=== PATIENT | female | born 1965 | race Caucasian/White ===

== ENCOUNTER 2021-04-17 10:45 | Inpatient (IN) ==
[~2021-04-17 10:45] MED LIST: Buffered Lidocaine 1% SYRIN 1 ml INTRADERM ONE; Lactated Ringers 1000 ml BAG 1,000 ML IV SCH
[2021-04-17] MEDS ORDERED: Propofol 10 MG/ML 20 ML BTL ONE ×4 (11:02→13:51)
[2021-04-17] MEDS ORDERED: Lidocaine 2% PF 5 ML VIAL ONE (11:03)
[2021-04-17] MEDS ORDERED: Buffered Lidocaine 1% SYRIN 1 ml INTRADERM ONE (11:13)
[2021-04-17] MEDS ORDERED: ceFAZolin 2 GM PREMIX 2 GM/50 ML BAG ONE (11:13)
[2021-04-17] MEDS ORDERED: Bupivacaine 0.5% SDV PF 30ML VIAL ONE (12:45)
[2021-04-17] MEDS ORDERED: Dexamethasone IV 4 MG/ML VIAL 1 ml VIAL ONE ×2 (12:45→14:05)
[2021-04-17] MEDS ORDERED: Lidocaine 1% MPF 5 ML VIAL ONE (12:52)
[2021-04-17] MEDS ORDERED: Rocuronium 50 mg VIAL 10 mg/ml 5 ml VIAL (50 mg) ONE (13:23)
[2021-04-17] MEDS ORDERED: fentaNYL 250 mcg/5 ml 50 MCG/ML 5 ml VIAL (250 MCG) ONE (13:24)
[2021-04-17] MEDS ORDERED: HYDROmorphone 0.5 MG/0.5 ML SYRINGE ONE ×5 (13:24→18:00)
[2021-04-17] MEDS ORDERED: Ondansetron 4 mg VIAL 2 MG/ML 2 ml VIAL ONE ×2 (14:05→17:08)
[2021-04-17] MEDS ORDERED: Morphine 2 MG/ML SYRINGE IV PRN (15:06)
[2021-04-17] MEDS ORDERED: Lactulose 30 ml UDC PO PRN (15:06)
[2021-04-17] MEDS ORDERED: Magnesium Hydroxide LIQ 30 ML UDC PO PRN (15:06)
[2021-04-17] MEDS ORDERED: diPHENhydraMINE 25 mg TAB PO PRN (15:06)
[2021-04-17] MEDS ORDERED: diPHENhydraMINE IV 50 MG/ML 1 ml VIAL (BENADRYL) IV PRN (15:06)
[2021-04-17] MEDS ORDERED: Prochlorperazine 5 mg/ml 2 ml VIAL (10 mg) IV PRN (15:12)
[2021-04-17] MEDS ORDERED: Acetaminophen IV 1 GM/100ML 100 ML IV ONE (17:01)
[2021-04-17] MEDS ORDERED: fentaNYL 100 mcg/2 ml 50 MCG/ML VIAL ONE ×2 (17:01→17:27)
[2021-04-17] MEDS ORDERED: DiMENhydriNATE IV 50 mg/ml 1 ml VIAL IV PUSH PRN (17:08)
[2021-04-17] MEDS ORDERED: Naloxone 0.4 mg VIAL 0.4 mg/ml 1 ml VIAL IV PRN (17:08)
[2021-04-17] MEDS: fentaNYL 100 mcg/2 ml 50 MCG/ML VIAL IV PRN ×5 (17:10→17:28)
[2021-04-17] MEDS ORDERED: DiMENhydriNATE IV 50 mg/ml 1 ml VIAL ONE (17:12)
[2021-04-17] MEDS: HYDROmorphone 1 MG/1 ML SYRINGE IV PRN ×2 (17:32→18:01)
[2021-04-17] MEDS ORDERED: oxyCODONE SR 10 mg TAB ONE (17:50)
[2021-04-17] MEDS: Lactated Ringers 1000 ml BAG 1,000 ML IV SCH (19:13)
[2021-04-17] MEDS: Magnesium Hydroxide LIQ 30 ML UDC PO SCH (20:12)
[2021-04-17] MEDS: ceFAZolin 1 GM ADVAN 1 GM in NS 0.9% 50 ML 50 ML IVPB SCH (22:04)
[2021-04-18] MEDS ORDERED: Lactated Ringers 1000 ml BAG 1,000 ML IV SCH (03:00)
[2021-04-18] MEDS: Lactated Ringers 1000 ml BAG 1,000 ML IV SCH ×2 (03:23→15:36)
[2021-04-18 03:25] LABS: ABS Lymphocytes 0.7 10^3/ul (1.0-4.8); ABS Monocytes 0.7 10^3/ul (0-0.8); ABS Neutrophils 6.8 10^3/ul (1.5-7.7); Hematocrit 31 % (35-47); Hemoglobin 10.6 g/dL (12.0-16.0); Lymphocyte % 8.9 %; Mean Corpuscular HGB Conc 34 g/dL (31-36); Mean Corpuscular Hemoglobin 31 pg (27-31); Mean Corpuscular Volume 93 fL (80-97); Platelet Count 197 10^3/uL (150-450); Red Blood Count 3.38 10^6 /uL (3.70-4.87); Red Cell Distribution Width 15 % (10-15); White Blood Count 8.2 10^3/uL (3.5-10.8)
[2021-04-18 03:45] LABS: Calcium 8.8 mg/dL (8.6-10.3); Potassium 4.2 mmol/L (3.5-5.0); eGFR CKD-EPI 77.1 (>60)
[2021-04-18] MEDS: ceFAZolin 1 GM ADVAN 1 GM in NS 0.9% 50 ML 50 ML IVPB SCH ×2 (05:39→15:36)
[2021-04-18 08:51] LABS: Calcium 8.8 mg/dL (8.6-10.3); Potassium 4.4 mmol/L (3.5-5.0)
[2021-04-18 08:57] LABS: eGFR CKD-EPI 79.2 (>60)
[2021-04-18] MEDS: Vitamin THERAPEUTIC TAB PO SCH (09:13)
[2021-04-18] MEDS: Magnesium Hydroxide LIQ 30 ML UDC PO SCH ×2 (09:32→20:24)
[2021-04-19 06:46] LABS: Hematocrit 31 % (35-47); Hemoglobin 10.3 g/dL (12.0-16.0); Mean Platelet Volume 7.9 fL (7.4-10.4); Platelet Count 183 10^3/uL (150-450)
[2021-04-19] MEDS: Vitamin THERAPEUTIC TAB PO SCH (09:07)
[2021-04-19] MEDS: Magnesium Hydroxide LIQ 30 ML UDC PO SCH (09:08)
[2021-04-19 11:16] VITALS: BP 101/61
== END 2021-04-19 15:40 | disposition home or self-care (01) | DRG 302 ==
LOC: AA 10:45 → SSU 18:57
PROVIDERS: ADMIT Orthopaedic Surgery Adult Reconstructive Orthopaedic Surgery; ATTEND Orthopaedic Surgery Adult Reconstructive Orthopaedic Surgery